=== PATIENT | female | born 1985 | race Caucasian/White ===

== ENCOUNTER 2017-01-30 21:44 | Emergency (ER) | payer SELFPAY ==
[~2017-01-30] VITALS: Ht 157.5 cm; Wt 83.5 kg
[2017-01-30 22:07] VITALS: BP 116/70
[2017-01-30] MEDS ORDERED: DIPH25CA58 PO (23:17)
[2017-01-30] MEDS ORDERED: PRED50TA PO (23:17)
[2017-01-30] MEDS ORDERED: TRIA15CR3 TP (23:17)
--- NOTE | 2017-01-30 23:17 | PHYS DOC ---
Past Medical History Past Medical History: No Pertinent History Past Surgical History: No Surgical History Alcohol Use: None Drug Use: None Adult General Chief Complaint Chief Complaint: ITCHING HPI HPI Patient is a 32 year old female with history significant for eczema presents with an acute exacerbation of her eczema rash on her arms and popliteal regions. Patient denies any other symptoms at this time. Patient has any fevers shakes chills nausea vomiting diarrhea chest pain or short of breath. Patient's physical exam is significant for an eczematous type rash in her bilateral antecubital fossa as well as her bilateral popliteal fossa was. There is no warmth drainage or evidence of acute infection. A/P eczema: Patient be discharged home with Benadryl and prednisone anti- insulin cream. Review of Systems Review of Systems Constitutional: Denies fever or chills [] Eyes: Denies change in visual acuity, redness, or eye pain [] All other review systems are negative except as documented in the history of present illness portion. Allergies Allergies Allergies Coded Allergies Type Severity Reaction Last Updated Verified No Known Drug Allergies 09/07/14 No Physical Exam Physical Exam Constitutional: Well developed, well nourished, no acute distress, non-toxic appearance. [] HENT: Normocephalic, atraumatic, bilateral external ears normal, oropharynx moist, no oral exudates, nose normal. [] Eyes: PERRLA, EOMI, conjunctiva normal, no discharge. [] Neck: Normal range of motion, no tenderness, supple, no stridor. [] Cardiovascular:Heart rate regular rhythm, no murmur [] Lungs & Thorax: Bilateral breath sounds clear to auscultation [] Abdomen: Bowel sounds normal, soft, no tenderness, no masses, no pulsatile masses. [] Skin: See above Back: No tenderness, no CVA tenderness. [] Extremities: No tenderness, no cyanosis, no clubbing, ROM intact, no edema. [] Neurologic: Alert and oriented X 3, normal motor function, normal sensory function, no focal deficits noted. [] Psychologic: Affect normal, judgement normal, mood normal. [] Current Patient Data Vital Signs Vital Signs Date Time Temp Pulse Resp B/P Pulse Ox O2 Delivery O2 Flow Rate FiO2 01/30/17 22:07 98.1 110 20 98 Room Air 98.1 EKG EKG [] Radiology/Procedures Radiology/Procedures [] Course & Med Decision Making Course & Med Decision Making Pertinent Labs and Imaging studies reviewed. (See chart for details) [] Dragon Disclaimer Dragon Disclaimer This electronic medical record was generated, in whole or in part, using a voice recognition dictation system. Departure Departure Impression: Primary Impression: Eczema Disposition: HOME, SELF-CARE Condition: STABLE Referrals: NO PCP (PCP) Patient Instructions: Eczema Scripts Triamcinolone Acetonide (Triamcinolone Acetonide 0.1% Cream)15 Gm Cream..g.1 Elbert TP BID PRN RASH #15 TUBE Prov:SARAH RESENDIZ MD 01/30/17 Prednisone 50 Mg Tablet1 Tab PO DAILY #5 TAB Prov:SARAH RESENDIZ MD 01/30/17 Diphenhydramine Hcl (Benadryl)25 Mg Capsule2 Cap PO Q6HRS PRN ITCHING #14 CAP Ref 2 Prov:SARAH RESENDIZ MD 01/30/17 Problem Qualifiers Primary Impression: Eczema Eczema type: unspecified Qualified Code: L30.9 - Dermatitis, unspecified SARAH RESENDIZ MD Jan 30, 2017 23:17
[2017-01-30] MEDS ORDERED: DIPHENHYDRAMINE HCL 25 MG CAPSULE PO ONE (23:30)
[2017-01-30] MEDS ORDERED: PREDNISONE 20 MG TABLET PO ONE (23:30)
== END 2017-01-30 23:55 | disposition home or self-care (01) ==
LOC: ER 21:44
DX: L30.9 Dermatitis, unspecified (principal)
CPT/HCPCS: 99283; J7512; Q0163

== ENCOUNTER 2018-05-31 08:38 | Inpatient (IN) | payer SELFPAY ==
[~2018-05-31] VITALS: Ht 165.1 cm; Wt 68.2 kg
[~2018-05-31 08:38] MED LIST: DIPH25CA58 PO; PRED50TA PO; TRIA15CR3 TP
[2018-05-31] MEDS ORDERED: ZIPRASIDONE IM 20 MG VIAL. IM ONE (09:00)
[2018-05-31] MEDS ORDERED: IV NORMAL SALINE 1000ML BAG 1,000 ML IV ONE ×3 (09:00→14:45)
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
[2018-05-31 11:14] LABS: BILIRUBIN,URINE NEGATIVE (NEG); CLARITY,URINE CLOUDY; COLOR,URINE YELLOW; NITRITE,URINE NEGATIVE (NEG); PH,URINE 5.5; PROTEIN,URINE 30 mg/dL (NEG-TRACE)
[2018-05-31 11:41] LABS: BACTERIA,URINE FEW /HPF (0-FEW); RBC,URINE 0 /HPF (0-2); SQUAMOUS EPITHELIAL CELL,UR FEW /LPF
[2018-05-31 11:42] LABS: TRICHOMONAS,URINE PRESENT
[2018-05-31 12:40] LABS: BARBITURATES NEG (NEG); BENZODIAZEPINES POS (NEG); CANNABINOIDS POS (NEG); COCAINE NEG (NEG); METHADONE NEG (NEG); OPIATES NEG (NEG); PHENCYCLIDINE NEG (NEG)
[2018-05-31 12:41] LABS: AMPHETAMINE/METHAMPHETAMINE POS (NEG)
[2018-05-31 12:52] LABS: BASO % 0 % (0-3); EOS % 0 % (0-3); HEMATOCRIT 30.2 % (36.0-47.0); HEMOGLOBIN 10.3 g/dL (12.0-15.5); LYMPH # 0.7 x10^3/uL (1.0-4.8); LYMPH % 8 % (24-48); MEAN CORPUSCULAR HEMOGLOBIN 30 pg (25-35); MEAN CORPUSCULAR HGB CONC 34 g/dL (31-37); MEAN CORPUSCULAR VOLUME 87 fL (79-100); MONO # 0.5 x10^3/uL (0.0-1.1); MONO % 6 % (0-9); NEUT % 86 % (31-73); PLATELET COUNT 263 x10^3/uL (140-400); RED BLOOD COUNT 3.47 x10^6/uL (3.50-5.40); RED CELL DISTRIBUTION WIDTH 14.4 % (11.5-14.5); WHITE BLOOD COUNT 9.3 x10^3/uL (4.0-11.0)
[2018-05-31 12:59] LABS: ALBUMIN 3.5 g/dL (3.4-5.0); CALCIUM 8.2 mg/dL (8.5-10.1); CREATININE 0.7 mg/dL (0.6-1.0); GFR 95.8; TOTAL BILIRUBIN 0.4 mg/dL (0.2-1.0)
[2018-05-31 13:02] LABS: ACETAMIN < 2.0 mcg/ml (10-30); ETHANOL < 10 mg/dL (0-10); SALIC < 2.8 mg/dL (2.8-20.0)
[2018-05-31 13:03] LABS: POTASSIUM 2.4 mmol/L (3.5-5.1)
[2018-05-31] MEDS: POTASSIUM CHLORIDE 10MEQ 100 ML IV SCH ×4 (13:56→21:19)
--- NOTE | 2018-05-31 14:01 | RAD ---
Portable chest, 05/31/2018: HISTORY: Altered mental status The heart size and pulmonary vascularity are normal. The lungs are clear. There is no evidence of pleural fluid. IMPRESSION: No acute cardiopulmonary abnormality is detected. Electronically signed by: Jemal Cavanaugh MD (05/31/2018 1:57 PM) [facility]
[2018-05-31 14:18] LABS: % BASOS 1 % (0-3); % EOS 1 % (0-5); % LYMPHS 6 % (24-48); % MONOS 5 % (0-10); % SEGS 87 % (35-66); PLT ESTIMATE ADEQUATE (ADEQUATE)
[2018-05-31 14:19] LABS: TOXIC GRANULATION SLIGHT
[2018-05-31] MEDS ORDERED: ACETAMINOPHEN 325 MG TABLET. PO PRN ×2 (14:45→17:00)
[2018-05-31] MEDS ORDERED: ONDANSETRON PF 4 MG/2 ML VIAL. IV PRN ×2 (14:45→17:00)
[2018-05-31] MEDS ORDERED: AZITHRMYCN 500MG IVPB FOR OMNI 250 ML IV ONE (14:45)
[2018-05-31 15:00] VITALS: BP 114/87
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
[2018-05-31] MEDS ORDERED: DOCUSATE SODIUM 100 MG CAPSULE. PO PRN (17:00)
[2018-05-31] MEDS ORDERED: ENOXAPARIN 40 MG/0.4 ML SYRINGE. SQ SCH (17:00)
[2018-05-31] MEDS ORDERED: HALOPERIDOL LACTATE 5 MG/ML VIAL. IVP PRN (17:00)
[2018-05-31] MEDS ORDERED: hydrALAZINE 20 MG/ML VIAL. IVP PRN (17:00)
[2018-05-31] MEDS ORDERED: traMADol 50 MG TABLET PO PRN (17:00)
[2018-05-31] MEDS ORDERED: MORPHINE SULFATE 2 MG/ML DISP.SYRIN. IV PRN (17:00)
[2018-05-31 18:59] VITALS: BP 112/62
[2018-05-31] MEDS ORDERED: POTASSIUM CHLORIDE 20 MEQ TABLET.ER. PO ONE (20:15)
[2018-05-31] MEDS: LACTOBACILLUS RHAMNOSUS GG 1 CAPSULE. PO SCH (21:00)
[2018-05-31 23:00] VITALS: BP 108/62
--- NOTE | 2018-05-31 23:18 | EKG ---
[facility] [address] [place] [address] Test Date: 2018-05-31 Test Time: 23:08:41 Pat Name: BENJY KRAFT Department: Room: Gender: F Crusher Supervisor: AYESHA : 1985 Requested By: MAI KENT Order Number: [id number] Reading MD: Measurements Intervals [place] Rate: 80 P: 0 [place]: 126 QRS: 77 QRSD: 90 T: 63 QT: 372 QTc: 433 Interpretive Statements SINUS RHYTHM QRS(T) CONTOUR ABNORMALITY CONSIDER ANTEROLATERAL MYOCARDIAL DAMAGE POSSIBLY ABNORMAL ECG RI6.01 No previous ECG available for comparison
[2018-06-01 03:23] VITALS: BP 118/71
--- NOTE | 2018-06-01 06:21 | EKG ---
[facility] [address] [place] [address] Test Date: 2018-05-31 Test Time: 12:21:36 Pat Name: BENJY KRAFT Department: Room: 201 1 Gender: F Make Up Girl: : 1985 Requested By: LEIDA AMES Order Number: [id number] Reading MD: Measurements Intervals [place] Rate: 99 P: 57 FL: 158 QRS: 64 QRSD: 98 T: 34 QT: 346 QTc: 449 Interpretive Statements SINUS RHYTHM NORMAL ECG RI6.01 No previous ECG available for comparison
[2018-06-01 07:00] VITALS: BP 99/55
[2018-06-01 08:10] LABS: BASO % 1 % (0-3); EOS # 0.2 x10^3/uL (0.0-0.7); EOS % 4 % (0-3); HEMATOCRIT 28.8 % (36.0-47.0); HEMOGLOBIN 9.8 g/dL (12.0-15.5); LYMPH # 1.3 x10^3/uL (1.0-4.8); LYMPH % 29 % (24-48); MEAN CORPUSCULAR HEMOGLOBIN 30 pg (25-35); MEAN CORPUSCULAR HGB CONC 34 g/dL (31-37); MEAN CORPUSCULAR VOLUME 88 fL (79-100); MONO # 0.5 x10^3/uL (0.0-1.1); MONO % 11 % (0-9); NEUT # 2.5 x10^3uL (1.8-7.7); NEUT % 55 % (31-73); PLATELET COUNT 246 x10^3/uL (140-400); RED BLOOD COUNT 3.26 x10^6/uL (3.50-5.40); RED CELL DISTRIBUTION WIDTH 14.6 % (11.5-14.5); WHITE BLOOD COUNT 4.5 x10^3/uL (4.0-11.0)
[2018-06-01 08:19] LABS: CALCIUM 7.9 mg/dL (8.5-10.1); CREATININE 0.6 mg/dL (0.6-1.0); GFR 114.4; POTASSIUM 3.4 mmol/L (3.5-5.1)
[2018-06-01] MEDS: LACTOBACILLUS RHAMNOSUS GG 1 CAPSULE. PO SCH (08:40)
[2018-06-01] MEDS ORDERED: POTASSIUM CHLORIDE 10MEQ 100 ML IV SCH (10:00)
[2018-06-01] MEDS ORDERED: POTASSIUM CHLORIDE 20 MEQ TABLET.ER. PO ONE (10:45)
[2018-06-01 11:00] VITALS: BP 104/63
[2018-06-01] MEDS ORDERED: TRIA15CR TP (11:14)
[2018-06-01] MEDS ORDERED: VENTOLIN HFA18 GM INH (11:16)
--- NOTE | 2018-06-01 12:01 | PDOC ---
PROGRESS NOTES Chief Complaint Chief Complaint Medical Problems: -Hypokalemia -Marijuana use -Methamphetamine use -Psychosis -Trichomonas vaginitis History of Present Illness History of Present Illness Pt. seen & examined NAD DW pt. hx of drug abuse, and plan to D/C Confirmed pt. had a place to live after DC Vitals Vitals Vital Signs Date Time Temp Pulse Resp B/P (MAP) Pulse Ox O2 Delivery O2 Flow Rate FiO2 06/01/18 11:00 97.9 93 16 104/63 (77) 98 Room Air 97.9 Physical Exam General: Alert, Oriented X3, Cooperative, No acute distress, Other Heart: Regular rate, Normal S1, Normal S2, No murmurs Lungs: Clear, Other Abdomen: Normal bowel sounds, Soft, No tenderness, No masses, Other Extremities: No clubbing, No cyanosis, No edema, Normal pulses, Other Skin: No breakdown, Other Labs LABS Laboratory Tests Test 05/31/18 12:15 05/31/18 18:40 05/31/18 22:45 06/01/18 07:30 White Blood Count 9.3 x10^3/uL (4.0-11.0) 4.5 x10^3/uL (4.0-11.0) Red Blood Count 3.47 x10^6/uL (3.50-5.40) 3.26 x10^6/uL (3.50-5.40) Hemoglobin 10.3 g/dL (12.0-15.5) 9.8 g/dL (12.0-15.5) Hematocrit 30.2 % (36.0-47.0) 28.8 % (36.0-47.0) Mean Corpuscular Volume 87 fL (79-100) 88 fL (79-100) Mean Corpuscular Hemoglobin 30 pg (25-35) 30 pg (25-35) Mean Corpuscular Hemoglobin Concent 34 g/dL (31-37) 34 g/dL (31-37) Red Cell Distribution Width 14.4 % (11.5-14.5) 14.6 % (11.5-14.5) Platelet Count 263 x10^3/uL (140-400) 246 x10^3/uL (140-400) Neutrophils (%) (Auto) 86 % (31-73) 55 % (31-73) Lymphocytes (%) (Auto) 8 % (24-48) 29 % (24-48) Monocytes (%) (Auto) 6 % (0-9) 11 % (0-9) Eosinophils (%) (Auto) 0 % (0-3) 4 % (0-3) Basophils (%) (Auto) 0 % (0-3) 1 % (0-3) Neutrophils # (Auto) 8.0 x10^3uL (1.8-7.7) 2.5 x10^3uL (1.8-7.7) Lymphocytes # (Auto) 0.7 x10^3/uL (1.0-4.8) 1.3 x10^3/uL (1.0-4.8) Monocytes # (Auto) 0.5 x10^3/uL (0.0-1.1) 0.5 x10^3/uL (0.0-1.1) Eosinophils # (Auto) 0.0 x10^3/uL (0.0-0.7) 0.2 x10^3/uL (0.0-0.7) Basophils # (Auto) 0.0 x10^3/uL (0.0-0.2) 0.0 x10^3/uL (0.0-0.2) Segmented Neutrophils % 87 % (35-66) Lymphocytes % 6 % (24-48) Monocytes % 5 % (0-10) Eosinophils % 1 % (0-5) Basophils % 1 % (0-3) Toxic Granulation Slight Platelet Estimate Adequate (ADEQUATE) Sodium Level 139 mmol/L (136-145) 141 mmol/L (136-145) Potassium Level 2.4 mmol/L (3.5-5.1) 2.6 mmol/L (3.5-5.1) 3.5 mmol/L (3.5-5.1) 3.4 mmol/L (3.5-5.1) Chloride Level 102 mmol/L (98-107) 107 mmol/L (98-107) Carbon Dioxide Level 27 mmol/L (21-32) 28 mmol/L (21-32) Anion Gap 10 (6-14) 6 (6-14) Blood Urea Nitrogen 14 mg/dL (7-20) 6 mg/dL (7-20) Creatinine 0.7 mg/dL (0.6-1.0) 0.6 mg/dL (0.6-1.0) Estimated GFR (Cockcroft-Gault) 95.8 114.4 BUN/Creatinine Ratio 20 (6-20) Glucose Level 102 mg/dL (70-99) 143 mg/dL (70-99) Calcium Level 8.2 mg/dL (8.5-10.1) 7.9 mg/dL (8.5-10.1) Total Bilirubin 0.4 mg/dL (0.2-1.0) Aspartate Amino Transf (AST/SGOT) 22 U/L (15-37) Alanine Aminotransferase (ALT/SGPT) 29 U/L (14-59) Alkaline Phosphatase 53 U/L (46-116) Creatine Kinase 357 U/L (26-192) Creatine Kinase MB (Mass) 2.4 ng/mL (0.0-3.6) Creatine Kinase MB Relative Index 0.7 % (0-4) Troponin I Quantitative < 0.017 ng/mL (0.000-0.055) Total Protein 7.0 g/dL (6.4-8.2) Albumin 3.5 g/dL (3.4-5.0) Albumin/Globulin Ratio 1.0 (1.0-1.7) Salicylates Level < 2.8 mg/dL (2.8-20.0) Salicylate Last Dose Date Unknown Salicylate Last Dose Time Unknown Acetaminophen Level < 2.0 mcg/ml (10-30) Acetaminophen Last Dose Date Unknown Acetaminophen Last Dose Time Unknown Ethyl Alcohol Level < 10 mg/dL (0-10) Magnesium Level 2.4 mg/dL (1.8-2.4) Review of Systems Review of Systems pt had eczematous rash pt. denied CARTAGENA pt. denied N/V Assessment and Plan Assessmemt and Plan Medical Problems: -Hypokalemia -Marijuana use -Methamphetamine use -Psychosis -Trichomonas vaginitis Plan: -K+ 40 MEQ PO for hypokalemia -Triamcinalone script for eczema -AMX for trichomonas -D/C 1-to-1 observation -Probable DC today Comment Review of Relevant I have reviewed the following items felicitas (where applicable) has been applied. Labs Laboratory Tests Test 05/31/18 10:40 05/31/18 10:47 05/31/18 11:46 05/31/18 12:15 Urine Collection Type Unknown Urine Color Yellow Urine Clarity Cloudy Urine pH 5.5 Urine Specific [place] >=1.030 Urine Protein 30 mg/dL (NEG-TRACE) Urine Glucose (UA) Negative mg/dL (NEG) Urine Ketones (Stick) Negative mg/dL (NEG) Urine Blood Negative (NEG) Urine Nitrite Negative (NEG) Urine Bilirubin Negative (NEG) Urine Urobilinogen Dipstick 1.0 mg/dL (0.2 mg/dL) Urine Leukocyte Esterase Trace (NEG) Urine RBC 0 /HPF (0-2) Urine WBC 5-10 /HPF (0-4) Urine Squamous Epithelial Cells Few /LPF Urine Bacteria Few /HPF (0-FEW) Urine Mucus Marked /LPF Urine Trichomonas Present Bedside Urine HCG, Qualitative Hcg negative (Negative) Urine Opiates Screen Neg (NEG) Urine Methadone Screen Neg (NEG) Urine Barbiturates Neg (NEG) Urine Phencyclidine Screen Neg (NEG) Urine Amphetamine/Methamphetamine Pos (NEG) Urine Benzodiazepines Screen Pos (NEG) Urine Cocaine Screen Neg (NEG) Urine Cannabinoids Screen Pos (NEG) Urine Ethyl Alcohol Neg (NEG) White Blood Count 9.3 x10^3/uL (4.0-11.0) Red Blood Count 3.47 x10^6/uL (3.50-5.40) Hemoglobin 10.3 g/dL (12.0-15.5) Hematocrit 30.2 % (36.0-47.0) Mean Corpuscular Volume 87 fL (79-100) Mean Corpuscular Hemoglobin 30 pg (25-35) Mean Corpuscular Hemoglobin Concent 34 g/dL (31-37) Red Cell Distribution Width 14.4 % (11.5-14.5) Platelet Count 263 x10^3/uL (140-400) Neutrophils (%) (Auto) 86 % (31-73) Lymphocytes (%) (Auto) 8 % (24-48) Monocytes (%) (Auto) 6 % (0-9) Eosinophils (%) (Auto) 0 % (0-3) Basophils (%) (Auto) 0 % (0-3) Neutrophils # (Auto) 8.0 x10^3uL (1.8-7.7) Lymphocytes # (Auto) 0.7 x10^3/uL (1.0-4.8) Monocytes # (Auto) 0.5 x10^3/uL (0.0-1.1) Eosinophils # (Auto) 0.0 x10^3/uL (0.0-0.7) Basophils # (Auto) 0.0 x10^3/uL (0.0-0.2) Segmented Neutrophils % 87 % (35-66) Lymphocytes % 6 % (24-48) Monocytes % 5 % (0-10) Eosinophils % 1 % (0-5) Basophils % 1 % (0-3) Toxic Granulation Slight Platelet Estimate Adequate (ADEQUATE) Sodium Level 139 mmol/L (136-145) Potassium Level 2.4 mmol/L (3.5-5.1) Chloride Level 102 mmol/L (98-107) Carbon Dioxide Level 27 mmol/L (21-32) Anion Gap 10 (6-14) Blood Urea Nitrogen 14 mg/dL (7-20) Creatinine 0.7 mg/dL (0.6-1.0) Estimated GFR (Cockcroft-Gault) 95.8 BUN/Creatinine Ratio 20 (6-20) Glucose Level 102 mg/dL (70-99) Calcium Level 8.2 mg/dL (8.5-10.1) Total Bilirubin 0.4 mg/dL (0.2-1.0) Aspartate Amino Transf (AST/SGOT) 22 U/L (15-37) Alanine Aminotransferase (ALT/SGPT) 29 U/L (14-59) Alkaline Phosphatase 53 U/L (46-116) Creatine Kinase 357 U/L (26-192) Creatine Kinase MB (Mass) 2.4 ng/mL (0.0-3.6) Creatine Kinase MB Relative Index 0.7 % (0-4) Troponin I Quantitative < 0.017 ng/mL (0.000-0.055) Total Protein 7.0 g/dL (6.4-8.2) Albumin 3.5 g/dL (3.4-5.0) Albumin/Globulin Ratio 1.0 (1.0-1.7) Salicylates Level < 2.8 mg/dL (2.8-20.0) Salicylate Last Dose Date Unknown Salicylate Last Dose Time Unknown Acetaminophen Level < 2.0 mcg/ml (10-30) Acetaminophen Last Dose Date Unknown Acetaminophen Last Dose Time Unknown Ethyl Alcohol Level < 10 mg/dL (0-10) Test 05/31/18 18:40 05/31/18 22:45 06/01/18 07:30 Potassium Level 2.6 mmol/L (3.5-5.1) 3.5 mmol/L (3.5-5.1) 3.4 mmol/L (3.5-5.1) Magnesium Level 2.4 mg/dL (1.8-2.4) White Blood Count 4.5 x10^3/uL (4.0-11.0) Red Blood Count 3.26 x10^6/uL (3.50-5.40) Hemoglobin 9.8 g/dL (12.0-15.5) Hematocrit 28.8 % (36.0-47.0) Mean Corpuscular Volume 88 fL (79-100) Mean Corpuscular Hemoglobin 30 pg (25-35) Mean Corpuscular Hemoglobin Concent 34 g/dL (31-37) Red Cell Distribution Width 14.6 % (11.5-14.5) Platelet Count 246 x10^3/uL (140-400) Neutrophils (%) (Auto) 55 % (31-73) Lymphocytes (%) (Auto) 29 % (24-48) Monocytes (%) (Auto) 11 % (0-9) Eosinophils (%) (Auto) 4 % (0-3) Basophils (%) (Auto) 1 % (0-3) Neutrophils # (Auto) 2.5 x10^3uL (1.8-7.7) Lymphocytes # (Auto) 1.3 x10^3/uL (1.0-4.8) Monocytes # (Auto) 0.5 x10^3/uL (0.0-1.1) Eosinophils # (Auto) 0.2 x10^3/uL (0.0-0.7) Basophils # (Auto) 0.0 x10^3/uL (0.0-0.2) Sodium Level 141 mmol/L (136-145) Chloride Level 107 mmol/L (98-107) Carbon Dioxide Level 28 mmol/L (21-32) Anion Gap 6 (6-14) Blood Urea Nitrogen 6 mg/dL (7-20) Creatinine 0.6 mg/dL (0.6-1.0) Estimated GFR (Cockcroft-Gault) 114.4 Glucose Level 143 mg/dL (70-99) Calcium Level 7.9 mg/dL (8.5-10.1) Laboratory Tests Test 05/31/18 12:15 05/31/18 18:40 05/31/18 22:45 06/01/18 07:30 White Blood Count 9.3 x10^3/uL (4.0-11.0) 4.5 x10^3/uL (4.0-11.0) Red Blood Count 3.47 x10^6/uL (3.50-5.40) 3.26 x10^6/uL (3.50-5.40) Hemoglobin 10.3 g/dL (12.0-15.5) 9.8 g/dL (12.0-15.5) Hematocrit 30.2 % (36.0-47.0) 28.8 % (36.0-47.0) Mean Corpuscular Volume 87 fL (79-100) 88 fL (79-100) Mean Corpuscular Hemoglobin 30 pg (25-35) 30 pg (25-35) Mean Corpuscular Hemoglobin Concent 34 g/dL (31-37) 34 g/dL (31-37) Red Cell Distribution Width 14.4 % (11.5-14.5) 14.6 % (11.5-14.5) Platelet Count 263 x10^3/uL (140-400) 246 x10^3/uL (140-400) Neutrophils (%) (Auto) 86 % (31-73) 55 % (31-73) Lymphocytes (%) (Auto) 8 % (24-48) 29 % (24-48) Monocytes (%) (Auto) 6 % (0-9) 11 % (0-9) Eosinophils (%) (Auto) 0 % (0-3) 4 % (0-3) Basophils (%) (Auto) 0 % (0-3) 1 % (0-3) Neutrophils # (Auto) 8.0 x10^3uL (1.8-7.7) 2.5 x10^3uL (1.8-7.7) Lymphocytes # (Auto) 0.7 x10^3/uL (1.0-4.8) 1.3 x10^3/uL (1.0-4.8) Monocytes # (Auto) 0.5 x10^3/uL (0.0-1.1) 0.5 x10^3/uL (0.0-1.1) Eosinophils # (Auto) 0.0 x10^3/uL (0.0-0.7) 0.2 x10^3/uL (0.0-0.7) Basophils # (Auto) 0.0 x10^3/uL (0.0-0.2) 0.0 x10^3/uL (0.0-0.2) Segmented Neutrophils % 87 % (35-66) Lymphocytes % 6 % (24-48) Monocytes % 5 % (0-10) Eosinophils % 1 % (0-5) Basophils % 1 % (0-3) Toxic Granulation Slight Platelet Estimate Adequate (ADEQUATE) Sodium Level 139 mmol/L (136-145) 141 mmol/L (136-145) Potassium Level 2.4 mmol/L (3.5-5.1) 2.6 mmol/L (3.5-5.1) 3.5 mmol/L (3.5-5.1) 3.4 mmol/L (3.5-5.1) Chloride Level 102 mmol/L (98-107) 107 mmol/L (98-107) Carbon Dioxide Level 27 mmol/L (21-32) 28 mmol/L (21-32) Anion Gap 10 (6-14) 6 (6-14) Blood Urea Nitrogen 14 mg/dL (7-20) 6 mg/dL (7-20) Creatinine 0.7 mg/dL (0.6-1.0) 0.6 mg/dL (0.6-1.0) Estimated GFR (Cockcroft-Gault) 95.8 114.4 BUN/Creatinine Ratio 20 (6-20) Glucose Level 102 mg/dL (70-99) 143 mg/dL (70-99) Calcium Level 8.2 mg/dL (8.5-10.1) 7.9 mg/dL (8.5-10.1) Total Bilirubin 0.4 mg/dL (0.2-1.0) Aspartate Amino Transf (AST/SGOT) 22 U/L (15-37) Alanine Aminotransferase (ALT/SGPT) 29 U/L (14-59) Alkaline Phosphatase 53 U/L (46-116) Creatine Kinase 357 U/L (26-192) Creatine Kinase MB (Mass) 2.4 ng/mL (0.0-3.6) Creatine Kinase MB Relative Index 0.7 % (0-4) Troponin I Quantitative < 0.017 ng/mL (0.000-0.055) Total Protein 7.0 g/dL (6.4-8.2) Albumin 3.5 g/dL (3.4-5.0) Albumin/Globulin Ratio 1.0 (1.0-1.7) Salicylates Level < 2.8 mg/dL (2.8-20.0) Salicylate Last Dose Date Unknown Salicylate Last Dose Time Unknown Acetaminophen Level < 2.0 mcg/ml (10-30) Acetaminophen Last Dose Date Unknown Acetaminophen Last Dose Time Unknown Ethyl Alcohol Level < 10 mg/dL (0-10) Magnesium Level 2.4 mg/dL (1.8-2.4) Medications Current Medications Sodium Chloride 1,000 ml @ 1,000 mls/hr 1X ONCE IV Last administered on at 12:26; Start 05/31/18 at 09:00; Stop 05/31/18 at 09:59; Status DC Ziprasidone (Geodon Im) 20 mg 1X ONCE IM Last administered on 05/31/18at 09:00 ; Start 05/31/18 at 09:00; Stop 05/31/18 at 09:01; Status DC Lorazepam (Ativan) 1 mg 1X ONCE IV ; Start 05/31/18 at 09:00; Stop 05/31/18 at 09:01; Status DC Potassium Chloride/Water 100 ml @ 100 mls/hr Q1H IV Last administered on at 21:19; Start 05/31/18 at 13:30; Stop 05/31/18 at 17:29; Status DC Sodium Chloride 1,000 ml @ 100 mls/hr 1X ONCE IV Last administered on at 13:57; Start 05/31/18 at 13:15; Stop 05/31/18 at 23:14; Status DC Ondansetron HCl (Zofran) 4 mg PRN Q8HRS PRN IV NAUSEA/VOMITING; Start 05/31/18 at 14:45; Stop 05/31/18 at 17:00; Status DC Acetaminophen (Tylenol) 650 mg PRN Q4HRS PRN PO FEVER; Start 05/31/18 at 14:45 ; Stop 05/31/18 at 16:58; Status DC Sodium Chloride 1,000 ml @ 100 mls/hr 1X ONCE IV Last administered on at 16:21; Start 05/31/18 at 14:45; Stop 06/01/18 at 00:44; Status DC Metronidazole 100 ml @ 100 mls/hr Q8HRS IV ; Start 05/31/18 at 22:00; Stop 10/06 at 22:00; Status DC Azithromycin 250 ml @ 250 mls/hr 1X ONCE IV Last administered on 05/31/18at 22 :34; Start 05/31/18 at 14:45; Stop 05/31/18 at 15:44; Status DC Ceftriaxone Sodium 50 ml @ 100 mls/hr 1X ONCE IV ; Start 05/31/18 at 14:45; Stop 05/31/18 at 15:14; Status DC Lorazepam (Ativan) 2 mg PRN Q4HRS PRN IV ANXIETY / AGITATION; Start 05/31/18 at 14:45; Status Cancel Metronidazole 100 ml @ 100 mls/hr ONCE ONCE IV Last administered on at 00:19; Start 05/31/18 at 15:00; Stop 05/31/18 at 15:59; Status DC Lactobacillus Rhamnosus (Culturelle) 1 cap BID PO Last administered on at 08:40; Start 05/31/18 at 21:00 Metronidazole 100 ml @ 100 mls/hr BID IV Last administered on 06/01/18at 08:44 ; Start 05/31/18 at 21:00 Acetaminophen (Tylenol) 650 mg PRN Q6HRS PRN PO FEVER; Start 05/31/18 at 17:00 Ondansetron HCl (Zofran) 4 mg PRN Q6HRS PRN IV NAUSEA/VOMITING; Start 05/31/18 at 17:00 Morphine Sulfate (Morphine Sulfate) 2 mg PRN Q2HR PRN IV MODERATE TO SEVERE PAIN; Start 05/31/18 at 17:00 Tramadol HCl (Ultram) 50 mg PRN Q6HRS PRN PO MILD TO MODERATE PAIN; Start 05/31 at 17:00 Hydralazine HCl (Apresoline Inj) 10 mg PRN Q4HRS PRN IVP ELEVATED BP, SEE COMMENTS; Start 05/31/18 at 17:00 Docusate Sodium (Colace) 100 mg PRN DAILY PRN PO CONSTIPATION; Start 05/31/18 at 17:00 Haloperidol Lactate (Haldol Inj) 5 mg PRN Q6HRS PRN IVP AGITATION; Start at 17:00 Lorazepam (Ativan) 1 mg PRN Q4HRS PRN IV ANXIETY / AGITATION; Start 05/31/18 at 17:00 Enoxaparin Sodium (Lovenox 40mg Syringe) 40 mg Q24H SQ ; Start 05/31/18 at 17:00 Potassium Chloride (Klor-Con) 40 meq 1X ONCE PO Last administered on at 22:36; Start 05/31/18 at 20:15; Stop 05/31/18 at 20:16; Status DC Potassium Chloride/Water 100 ml @ 100 mls/hr Q1H IV ; Start 06/01/18 at 10:00; Stop 06/01/18 at 10:39; Status DC Potassium Chloride (Klor-Con) 40 meq 1X ONCE PO Last administered on at 10:49; Start 06/01/18 at 10:45; Stop 06/01/18 at 10:46; Status DC Active Scripts Active Triamcinolone Acetonide 0.1% Cream (Triamcinolone Acetonide) 15 Gm Cream..g. 1 Elbert TP BID PRN Prednisone 50 Mg Tablet 1 Tab PO DAILY Benadryl (Diphenhydramine Hcl) 25 Mg Capsule 2 Cap PO Q6HRS PRN Reported Ventolin Hfa Inhaler (Albuterol Sulfate) 18 Gm Hfa.aer.ad 2 Puff INH QID Triamcinolone Acetonide 0.5% Cream (Triamcinolone Acetonide) 15 Gm Cream..g. 1 Elbert TP BID Vitals/I & O Vital Sign - Last 24 Hours 05/31/18 05/31/18 05/31/18 05/31/18 15:00 15:00 18:59 20:00 Temp 98.1 97.5 98.1 97.5 Pulse 87 85 Resp 18 20 B/P (MAP) 114/87 (96) 112/62 (79) Pulse Ox 96 98 O2 Delivery Room Air Room Air Room Air Room Air 05/31/18 06/01/18 06/01/18 06/01/18 23:00 03:23 07:00 08:14 Temp 97.5 96.2 97.0 97.5 96.2 97.0 Pulse 81 68 68 Resp 20 20 B/P (MAP) 108/62 (77) 118/71 (87) 99/55 (70) Pulse Ox 97 98 98 O2 Delivery Room Air Room Air Room Air Room Air 06/01/18 11:00 Temp 97.9 97.9 Pulse 93 Resp 16 B/P (MAP) 104/63 (77) Pulse Ox 98 O2 Delivery Room Air Intake and Output 05/31/18 05/31/18 06/01/18 15:00 23:00 07:00 Intake Total 1000 ml 300 ml Output Total 0 ml Balance 1000 ml 300 ml 0 ml JO LAGUERRE III DO Jun 01, 2018 12:01
--- NOTE | 2018-06-01 16:57 | DS ---
DATE OF DISCHARGE: 06/01/2018 ADMISSION DIAGNOSES: 1. 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 2. Hypokalemia. DISCHARGE DIAGNOSIS: Resolving psychosis. HOSPITAL COURSE: The patient is a pleasant 33-year-old female who has had a very traumatic life. Her mom is a maintenance worker municipal and is on drugs to this day. She was raised around with all of that. About 4 years ago, her brother was shot by the police in , [place]. The patient herself has drug problems. She states she is on parole. She was admitted with acute psychosis and hypokalemia. Her drug screen was positive for meth, marijuana and benzos. We will admit the patient overnight. This morning, she is back to her baseline. We plan to discharge with close outpatient followup. DISPOSITION: Home. ACTIVITY: As tolerated. DIET: Low sodium. MEDICATIONS: Please see the MRAD. TOTAL TIME: 37 minutes. JO LAGUERRE DO DR: XUAN/tiffanie JOB#: [id number] / [id number]
== END 2018-06-01 13:48 | disposition home or self-care (01) | DRG 917 ==
LOC: ER 08:38 → 2 NORTH 13:13
PROVIDERS: ADMIT Internal Medicine; ATTEND Internal Medicine
DX: T42.4X1A Poisoning by benzodiazepines, accidental (unintentional), initial encounter (principal); G92 Toxic encephalopathy; F23 Brief psychotic disorder; E87.6 Hypokalemia; T43.621A Poisoning by amphetamines, accidental (unintentional), initial encounter; T40.7X1A Poisoning by cannabis (derivatives), accidental (unintentional), initial encounter; A59.01 Trichomonal vulvovaginitis; F17.210 Nicotine dependence, cigarettes, uncomplicated; F12.10 Cannabis abuse, uncomplicated; F15.10 Other stimulant abuse, uncomplicated; D64.9 Anemia, unspecified; Z98.51 Tubal ligation status; Z82.49 Family history of ischemic heart disease and other diseases of the circulatory system; Z65.3 Problems related to other legal circumstances; Y92.89 Other specified places as the place of occurrence of the external cause
CPT/HCPCS: 36415; 71045; 80048; 80053; 80307; 80329; 81001; 81025; 82553; 83735; 84132; 84484; 85007; 85025; 87086; 87186; 93005; 96360; 96361; 96372; G0480; G6039; J0456; J3480; J3486; J3490; J7030; 99285-25; G0479